=== PATIENT | female | born 2000 | race Caucasian/White ===

== ENCOUNTER 2023-11-25 10:18 | Emergency (ER) | payer OTHER, SELFPAY ==
[2023-11-25 10:22] VITALS: BP 104/85; PULSE 109; TEMP 37.3; O2SAT 94; BMI 23.9
--- NOTE | 2023-11-25 10:45 | XR_ITS ---
The [address] [address] Patient Name: GALI FISH MRN: [id number] date: 2000 Sex: F Assigned Patient Location: ER Current Patient Location: ER Accession/Order Number: [id number] Exam Date: 11/25/2023 10:40 Report Date: 11/25/2023 11:19 At the request of: CHANCE FORTE Procedure: XR chest 1V EXAMINATION: XR chest 1V HISTORY: sob COMPARISON: No relevant comparison available. TECHNIQUE: AP portable FINDINGS: LUNGS: No significant pulmonary parenchymal abnormalities. VASCULATURE: No increased pulmonary vasculature. PLEURA: No pneumothorax, effusion, or pleural thickening. CARDIAC: No cardiomegaly or cardiac silhouette abnormality. MEDIASTINUM: No visible mass or adenopathy. BONES: No fracture or visible bone lesion. OTHER: Negative. XR/XR chest 1V IMPRESSION: No acute cardiopulmonary process Electronically authenticated by: ALEXUS LUCIO Date: 11/25/2023 11:19
[2023-11-25] MEDS: IPRATROPIUM/ALBUTEROL SULFATE 3 ML AMPUL.NEB IH (10:50)
[2023-11-25 10:56] LABS: Basophils Absolute Auto 0.1 10^3/uL (0.0-0.1); Basophils Percent Auto 0.5 % (0.2-2.0); Eosinophils Percent Auto 8.7 % (0.9-7.0); Hematocrit 39.1 % (36.0-48.0); Hemoglobin 12.8 g/dL (12.0-16.0); Immature Granulocytes Abs Auto 0.03 10^3/uL (0.00-0.03); Immature Granulocytes Pct Auto 0.3 % (0.0-0.5); Lymphocytes Absolute Auto 2.7 10^3/uL (1.2-3.8); Lymphocytes Percent Auto 23.7 % (20.5-60.0); Mean Corpuscular HGB Conc 32.7 g/dL (29.9-35.2); Mean Corpuscular Hemoglobin 27.3 pg (26.7-34.0); Mean Corpuscular Volume 83.4 fL (81.0-99.0); Mean Platelet Volume 10.5 fL (9.5-13.5); Monocytes Absolute Auto 0.8 10^3/uL (0.3-0.8); Monocytes Percent Auto 6.9 % (1.7-12.0); Neutrophils Absolute Auto 6.8 10^3/uL (1.4-6.5); Neutrophils Percent Auto 59.9 % (43.0-75.0); Platelet Count 271 10^3/uL (150-450); Red Blood Count 4.69 10^6/uL (4.20-5.40); Red Cell Distribution Width 15.2 % (11.0-15.0); White Blood Count 11.4 10^3/uL (4.0-11.0)
[2023-11-25] MEDS: MAGNESIUM SULFATE IN WATER 2 GM/50 ML PREMIX IV (11:07)
[2023-11-25] MEDS: METHYLPREDNISOLONE SOD SUCC PF 125 MG/2 ML VIAL IVP (11:07)
[2023-11-25 11:11] LABS: Alanine Aminotransferase 33 U/L (14-59); Albumin Globulin Ratio 0.9; Albumin Level 3.9 g/dL (3.4-5.0); Alkaline Phosphatase 51 U/L (46-116); Anion Gap 11.9; Aspartate Amino Transferase 24 U/L (15-37); BUN Creatinine Ratio 20.9; Bilirubin Total 0.6 mg/dL (0.2-1.0); Calcium 8.9 mg/dL (8.5-10.1); Carbon Dioxide 23.8 mmol/L (21.0-32.0); Chloride 104 mmol/L (98-107); Estimated GFR (African America >60 (>=60); Estimated GFR (Non-African Ame >60 (>=60); Globulin 4.2 g/dL; Glucose 114 mg/dL (74-106); HCG Qualitative NEGATIVE (NEGATIVE); Internal Control Within Normal Limits; Potassium 3.7 mmol/L (3.5-5.1); Sodium 136 mmol/L (136-145); Total Protein 8.1 g/dL (6.4-8.2)
[2023-11-25 11:13] LABS: Influenza Virus A Antigen Negative; Influenza Virus B Antigen Negative; Internal Control Within Normal Limits
[2023-11-25 11:14] LABS: Internal Control Within Normal Limits; SARS-CoV-2 Ag NEGATIVE (NEGATIVE)
--- NOTE | 2023-11-25 12:26 | ED.SOB1 ---
HPI - SOB/Dyspnea General Chief Complaint: Shortness of Breath/Dyspnea Stated Complaint: SOB Time Seen by Provider: 11/25/23 10:30 Source: patient Mode of arrival: walk-in Limitations: no limitations History of Present Illness HPI Narrative: Is coming to us with asthma exacerbation symptoms, mentioned that she started almost 1 week and a half ago having some asthma exacerbation presented to an urgent care where she had prednisone and she got better but almost after a week she started having shortness of breath again and she has been using her inhaler at least 5-6 times a day, the patient mentioned that she have a history of severe asthma and she usually will need Advair but she does not have the money for it right now and she also mentioned it was not covered with her insurance She also mentioned that she is supposed to get albuterol breathing treatment at home but she lives in [place] and she have them in [place], the patient mentioned that she have a history of intubation at least 12 time before because of history of severe asthma The patient denies any other complaints chest pain nausea vomiting or any other concerns she is not showing any distress at the moment but she mentioned that she used her inhaler before arrival Related Data Home Medications ?Medication ?Instructions ?Recorded ?Confirmed albuterol 90 mcg/actuation aerosol mcg inhalation 11/25/23 inhaler Previous Rx's ?Medication ?Instructions ?Recorded albuterol sulfate 90 mcg/actuation 2 inh inhalation QID PRN shortness 11/25/23 aerosol inhaler of breath or wheezing #8.5 grams fluticasone 250 mcg-salmeterol 50 1 inh inhalation BID #60 ea 11/25/23 mcg/dose blistr powdr for inhalation (Advair Diskus) prednisone 20 mg tablet 40 mg (2 x 20 mg) PO DAILY 5 days 11/25/23 #10 tabs Allergies Allergy/AdvReac Type Severity Reaction Status Date / Time No Known Drug Allergies Allergy Verified 11/25/23 10:22 Review of Systems ROS Status of ROS 10 or more systems reviewed and unremarkable except as noted in history and below PFSH PFSH Social History Little interest or pleasure in doing things: not at all Feeling down, depressed, or hopeless: not at all Exam Narrative Exam Narrative: Nurses notes and vital signs reviewed and patient is not hypoxic. General: Well-appearing and in no apparent distress. Skin: Warm, dry, no pallor noted. No rash. Head: Normocephalic, atraumatic. Neck: Supple, non-tender. Eye: Pupils are equal, round and EOMI. No scleral icterus. Ears, Nose, Mouth, and Throat: TM are clear, no nasal mucosal hypertrophy. Oral mucosa is moist, no posterior oropharynx erythema, uvula is mid-line Cardiovascular: Regular Rate and Rhythm without murmur, gallop or rub. Respiratory: No accessory muscle use or respiratory distress. Lungs the patient have a very mild expiratory wheeze bilaterally and no signs of distress Chest Wall: no tenderness Back: No midline thoracic or lumbar vertebral tenderness. No CVA tenderness Musculoskeletal: normal ROM, no calf or popliteal tenderness, no lower extremity edema/swelling GI: Abdomen is soft, non-distended. Normal bowel sounds. No masses appreciated. No tenderness to palpation. No rebound, guarding, or rigidity noted. Neurological: A&O x4. No cranial nerve dysfunction observed. No truncal ataxia. Moves all extremities. Sensation intact. Psychiatric: Cooperative and interactive. Normal mood and affect. Constitutional Vital Signs, click to edit/add: Last Vital Signs Temp 99.1 F 11/25/23 10:22 Pulse 109 H 11/25/23 10:22 Resp 11/25/23 10:22 BP 104/85 11/25/23 10:22 Pulse Ox 94 L 11/25/23 10:22 O2 Del Method Room Air 11/25/23 10:22 Course Vital Signs Vital signs: Vital Signs Temperature 99.1 F 11/25/23 10:22 Pulse Rate 109 H 11/25/23 10:22 Respiratory Rate 11/25/23 10:22 Blood Pressure 104/85 11/25/23 10:22 Pulse Oximetry 94 L 11/25/23 10:22 Oxygen Delivery Method Room Air 11/25/23 10:22 Temperature 99.1 F 11/25/23 10:22 Pulse Rate 109 H 11/25/23 10:22 Respiratory Rate 11/25/23 10:22 Blood Pressure 104/85 11/25/23 10:22 Pulse Oximetry 94 L 11/25/23 10:22 Oxygen Delivery Method Room Air 11/25/23 10:22 MDM - SOB/Dyspnea MDM Narrative Medical decision making narrative: The patient does have a significant history but she has presented to us with a mild asthma at the moment but she would need increasing her treatment to adding Advair in addition to prednisone The patient was treated in the ER with Solu-Medrol as well as her CBC and chemistry showed no acute pathology with a chest x-ray showing no pneumonia The patient was discharged home with prednisone Advair and instruction to follow-up with her doctor within a week The patient is to follow up with primary care physician in next 2-3 days or to return to the emergency department should any of the signs or symptoms worsen or new symptoms develop. The patient agrees with the following Diagnosis and Treatment plan and the patient will be discharged home. Lab Data Labs: Lab Results 11/25/23 11/25/23 Range/Units 10:30 10:50 WBC 11.4 H (4.0-11.0) 10^3/uL RBC 4.69 (4.20-5.40) 10^6/uL Hgb 12.8 (12.0-16.0) g/dL Hct 39.1 (36.0-48.0) % MCV 83.4 (81.0-99.0) fL MCH 27.3 (26.7-34.0) pg MCHC 32.7 (29.9-35.2) g/dL RDW 15.2 H (11.0-15.0) % Plt Count 271 (150-450) 10^3/uL MPV 10.5 (9.5-13.5) fL Neut % (Auto) 59.9 (43.0-75.0) % Lymph % (Auto) 23.7 (20.5-60.0) % Richardson % (Auto) 6.9 (1.7-12.0) % Eos % (Auto) 8.7 H (0.9-7.0) % Baso % (Auto) 0.5 (0.2-2.0) % Neut # (Auto) 6.8 H (1.4-6.5) 10^3/uL Lymph # (Auto) 2.7 (1.2-3.8) 10^3/uL Richardson # (Auto) 0.8 (0.3-0.8) 10^3/uL Eos # (Auto) 1.0 H (0.0-0.7) 10^3/uL Baso # (Auto) 0.1 (0.0-0.1) 10^3/uL Abs Immat Gran (auto) 0.03 (0.00-0.03) 10^3/uL Imm/Tot Granulo (auto) 0.3 (0.0-0.5) % Sodium 136 (136-145) mmol/L Potassium 3.7 (3.5-5.1) mmol/L Chloride 104 (98-107) mmol/L Carbon Dioxide 23.8 (21.0-32.0) mmol/L Anion Gap 11.9 BUN 14.0 (7.0-18.0) mg/dL Creatinine 0.67 (0.55-1.02) mg/dL Est GFR ( Amer) >60 (>=60) Est GFR (Non-Af Amer) >60 (>=60) BUN/Creatinine Ratio 20.9 Glucose 114 H (74-106) mg/dL Calcium 8.9 (8.5-10.1) mg/dL Total Bilirubin 0.6 (0.2-1.0) mg/dL AST 24 (15-37) U/L ALT 33 (14-59) U/L Alkaline Phosphatase 51 (46-116) U/L Total Protein 8.1 (6.4-8.2) g/dL Albumin 3.9 (3.4-5.0) g/dL Globulin 4.2 g/dL Albumin/Globulin Ratio 0.9 Serum HCG, Qual Negative (NEGATIVE) Influenza Type A Ag Negative Influenza Type B Ag Negative SARS-CoV-2 Ag (CV2AG) Negative (NEGATIVE) Discharge Plan Discharge Chief Complaint: Shortness of Breath/Dyspnea Clinical Impression: Asthma with acute exacerbation Qualifiers: Asthma severity: mild Asthma persistence: persistent Qualified Code(s): J45.31 - Mild persistent asthma with (acute) exacerbation Patient Disposition: Home, Self-Care Time of Disposition Decision: 11:46 Condition: Good Mode of Transportation: Private Vehicle Prescriptions / Home Meds: New prednisone 20 mg tablet 40 mg PO DAILY 5 Days Qty: 10 0RF fluticasone propion-salmeterol [Advair Diskus] 250-50 mcg/dose blister with device 1 inh inhalation BID Qty: 60 0RF albuterol sulfate 90 mcg/actuation HFA aerosol inhaler 2 inh inhalation QID PRN (Reason: shortness of breath or wheezing) Qty: 8.5 0RF No Action albuterol 90 mcg/actuation aerosol inhalation Print Language: Peruvian Instructions: Asthma (DC) Referrals: Physician,Non-Staff, MD [Primary Care Provider] - 1 week Discharge Date/Time: 11/25/23 11:55
== END 2023-11-25 11:55 | disposition home or self-care (01) ==
PROVIDERS: Emergency Provider Emergency Medicine
DX: J45.31 Mild persistent asthma with (acute) exacerbation (principal); Z20.822 Contact with and (suspected) exposure to COVID-19
CPT/HCPCS: 36415; 71045; 80053; 84703; 85025; 87804; 87811; 94640; 96365; 96375; 99284; J2919; J3475

== ENCOUNTER 2024-11-12 09:58 | Emergency (ER) | payer OTHER, SELFPAY ==
--- OUTSIDE RECORDS SUMMARY | 2024-02-08 05:00 | XMS_ITS ---
Author Organization [facility] Address [address] [place] [phone] Care Team Providers Care Ticket Printer And Tagger Name Role Phone Migration, Provider Unavailable Unavailable REASON FOR VISIT EMR-Trever Encounters Encounter Location Date Provider Diagnosis [facility] [address] [place] [phone] 02/08/2024 Provider Migration Plan Of Treatment No Information Progress Notes * FISHAlannah PrajapatiDOB:2000 (24 yo F)Acc No.[id number]:02/08/2024 Patient: Alannah GUTIERREZ :2000 A ge:23 Y S ex:Female Phone: Address:[address] [place], [address] Subjective: * Chief Complaints: * E MR-Trever * Medical History: * Surgical History: * Hospitalization/Major Diagno stic Procedure: * Medications: Objective: * Vitals: * Physical Examination: Assessment: Plan: * Treatment: * Procedure Codes: * * Date:
--- OUTSIDE RECORDS SUMMARY | 2024-02-09 05:00 | XMS_ITS ---
Author Organization [facility] Address [address] [place] [phone] Care Team Providers Care It Engineer Name Role Phone Migration, Provider Unavailable Unavailable REASON FOR VISIT EMR-Trever Encounters Encounter Location Date Provider Diagnosis [facility] [address] [place] [phone] 02/09/2024 Provider Migration Plan Of Treatment No Information Progress Notes * FISHAlannah PrajapatiDOB:2000 (24 yo F)Acc No.[id number]:02/09/2024 Patient: Alannah GUTIERREZ :2000 A ge:23 Y S ex:Female Phone: Address:[address] [place], [address] Subjective: * Chief Complaints: * E MR-Trever * Medical History: * Surgical History: * Hospitalization/Major Diagno stic Procedure: * Medications: Objective: * Vitals: * Physical Examination: Assessment: Plan: * Treatment: * Procedure Codes: * * Date:
[2024-11-12 10:09] VITALS: BP 95/74; PULSE 72; TEMP 37.2; O2SAT 99; BMI 23.8
--- OUTSIDE RECORDS SUMMARY | 2024-11-12 10:12 | XMS_ITS | Patient Health Record ---
Author Organization [facility] Address [address] [phone] Care Team Providers Care Head Usher Name Role Phone Migration, Provider Unavailable Unavailable Reason For Referral No Information Encounters Encounter Location Date Provider Diagnosis [facility] [address] [phone] 02/08/2024 Provider Migration [facility] [address] [phone] 02/09/2024 Provider Migration Plan Of Treatment No Information Insurance Providers Payer Name Payer Address Payer Phone Subscriber Number Group Number Insured Name Patient Relationship to Insured Coverage Start Date Coverage End Date [facility] [address] [address] [place] [address] [id number] Alannah Mills Self - patient is the insured [facility] [address] [place] [address] [id number] Alannah Mills Self - patient is the insured
[2024-11-12] MEDS: KETOROLAC TROMETHAMINE 30 MG/ML VIAL IM (10:49)
--- NOTE | 2024-11-12 11:42 | ED_ITS ---
HPI HPI - Back Pain/Injury General Chief Complaint: Back Pain/Injury Stated Complaint: BACK PAIN Time Seen by Provider: 11/12/24 10:19 Source: patient Mode of arrival: walk-in History of Present Illness HPI Narrative: The patient is coming to the ER with a right sided posterior chest wall pain. 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 There is no other complaint. She tried cold compression with no improvement The patient denies any fall or injury Related Data Home Medications ?Medication ?Instructions ?Recorded ?Confirmed albuterol 90 mcg/actuation aerosol 90 mcg inhalation Q 6H PRN 11/25/23 11/12/24 inhaler shortness of breath or wheez ing Previous Rx's ?Medication ?Instructions ?Recorded diclofenac sodium 75 mg 75 mg PO BID PRN pain #20 ta bs 11/12/24 tablet,delayed release orphenadrine citrate 100 mg 100 mg PO BID PRN muscle s pasm #20 11/12/24 tablet,extended release tabs Allergies Allergy/AdvReac Type Severity Reaction Status Date / Time No Known Drug Allergies Allergy Verified 11/25/23 10:22 Opioid HPI Opioid Management Most Recent Opioid Data: Last Pain Scale 7 Today, 10:49 Last MAR Pain Assessment Today, 10:49 Review of Systems ROS Status of ROS 10 or more systems reviewed and unremark able except as noted in history and below PFSH PFSH Social History Little interest or pleasure in doing things: not at all Feeling down, depressed, or hopeless: not at all Exam Narrative Exam Narrative: Nurses notes and vital signs reviewed and patient is not hypoxic. General: Well-appearing and in no apparent distress. Skin: Warm, dry, no pallor noted. No rash. Head: Normocephalic, atraumatic. Neck: Supple, non-tender. Cardiovascular: Regular Rate and Rhythm without murmur, gallop or rub. Respiratory: No accessory muscle use or respiratory distress. Lungs are clear to auscultation, no wheezing, rales or rhonchi Chest Wall: Tenderness to palpation of the right scapular area with movement also over the right shoulder the patient have some pain mostly adduction of the shoulder Back: No midline thoracic or lumbar vertebral tenderness. No CVA tenderness Musculoskeletal: normal ROM, no calf or popliteal tenderness, no lower extremity edema/swelling GI: Abdomen is soft, non-distended. Normal bowel sounds. No masses appreciated. No tenderness to palpation. No rebound, guarding, or rigidity noted. Neurological: A&O x4. No cranial nerve dysfunction observed. No truncal ataxia. Moves all extremities. Sensation intact. Psychiatric: Cooperative and interactive. Normal mood and affect. Constitutional Vital Signs, click to edit/add: Last Vital Signs Temp 98.9 F 11/12/24 10:09 Pulse 72 11/12/24 10:09 Resp 16 11/12/24 10:09 BP 95/74 11/12/24 10:09 Pulse Ox 99 11/12/24 10:09 O2 Del Method Room Air 11/12/24 10:09 Course Vital Signs Vital signs: Vital Signs Temperature 98.9 F 11/12/24 10:09 Pulse Rate 72 11/12/24 10:09 Respiratory Rate 16 11/12/24 10:09 Blood Pressure 95/74 11/12/24 10:09 Pulse Oximetry 99 11/12/24 10:09 Oxygen Delivery Method Room Air 11/12/24 10:09 Temperature 98.9 F 11/12/24 10:09 Pulse Rate 72 11/12/24 10:09 Respiratory Rate 16 11/12/24 10:09 Blood Pressure 95/74 11/12/24 10:09 Pulse Oximetry 99 11/12/24 10:09 Oxygen Delivery Method Room Air 11/12/24 10:09 MDM - Back Pain/Injury MDM Narrative Medical decision making narrative: The patient presentation is mostly secondary to sprain of the right shoulder and posterior scapular area Patient started on Toradol as well as Norflex The patient is to follow up with primary care physician in next 2-3 days or to return to the emergency department should any of the signs or symptoms worsen or new symptoms develop. The patient agrees with the following Diagnosis and Treatment plan and the patient will be discharged home. Discharge Plan Discharge Chief Complaint: Back Pain/Injury Clinical Impression: Shoulder sprain Patient Disposition: Home, Self-Care Time of Disposition Decision: 10:40 Condition: Good Prescriptions / Home Meds: New diclofenac sodium 75 mg tablet,delayed release (DR/EC) 75 mg PO BID PRN (Reason: pain) Qty: 20 0RF orphenadrine citrate 100 mg tablet extended release 100 mg PO BID PRN (Reason: muscle spasm) Qty: 20 0RF No Action albuterol 90 mcg/actuation aerosol 90 mcg inhalation Q6H PRN (Reason: shortness of breath or wheezing) Print Language: Uruguayan Instructions: Shoulder Sprain (ED) Referrals: Physician,Non-Staff, MD [Primary Care Provider] - 1 week Discharge Date/Time: 11/12/24 10:51
== END 2024-11-12 10:51 | disposition home or self-care (01) ==
PROVIDERS: Emergency Provider Emergency Medicine
DX: S43.401A Unspecified sprain of right shoulder joint, initial encounter (principal); X50.9XXA Other and unspecified overexertion or strenuous movements or postures, initial encounter
CPT/HCPCS: 96372; 99284; J1885